=== PATIENT | male | born 1980 | race Caucasian/White ===

== ENCOUNTER 2018-01-29 20:30 | Emergency (ER) | payer OTHER ==
[~2018-01-29 20:30] MED LIST: LIDOCAINE HCL/PF 2% 100 MG/5 ML VIAL IJ ONE
--- NOTE | 2018-01-29 20:39 | ED Physician Documentation ---
General Adult - HISTORIAN Historian: patient - HPI Stated Complaint: finger laceration Chief Complaint: General Adult Onset: minutes Timing: still present Severity: moderate Further Comments: yes (Pt is a 37 yo male with a laceration to the tip of his L middle finger. Pt was scraping adhesive off the interior window of a car where the mirror attaches with his pocket knife and slipped and cut his finger. Tetanus is utd.) - ROS CONST: no problems EYES/ENT: none CVS/RESP: none GI/: none MS/SKIN/LYMPH: other (finger laceration) - PAST HX Past History: other (anxiety) Allergies/Adverse Reactions: Allergies Allergy/AdvReac Type Severity Reaction Status Date / Time Penicillins Allergy Intermediate Rash Verified 01/29/18 20:55 Home Medications: Ambulatory Orders Medication Instructions Recorded Escitalopram Oxalate [Lexapro] 10 mg PO DAILY 07/01/14 LORazepam [Ativan] 0.5 mg PO PRN PRN 01/29/18 - SOCIAL HX Smoking History: non-smoker - FAMILY HX Family History: No - VITAL SIGNS Vital Signs: Vital Signs Temp Pulse Resp BP Pulse Ox 114/67 07/01/14 22:59 - REVIEWED ASSESSMENTS Nursing Assessment Reviewed: Yes Vitals Reviewed: Yes Procedures Wound Location: upper extremity (ventral L middle finger tip) Wound Length: 1 cm Wound's Depth, Shape: superficial, linear Wound Explored: clean Irrigated w/ Saline (ccs): 20 Betadine Prep?: No (Bhupindericlekolby) Anesthesia: 2% Lidocaine Wound Debrided: minimal Wound Repaired With: sutures Suture Size/Type: 4:0, nylon Number of Sutures: 3 Layer Closure?: No Progress - Progress Progress: Apply topical antibiotic, such as Neosporin, Bacitracin, or Triple Antibiotic to sutured area twice daily for 5 days. Follow up with primary provider in 7 days for suture removal. Pt given rx for Keflex 500 mg po tid, which he will fill only if he sees signs of infection. Pt has had keflex in the past. General Adult Physical Exam - PHYSICAL EXAM GENERAL APPEARANCE: mild distress NECK: normal inspection, supple RESPIRATORY: no resp distress, chest non-tender, breath sounds normal CVS: reg rate & rhythm, heart sounds normal BACK: normal inspection SKIN: other (laceration to ventral L middle finger tip, 1 cm.) EXTREMITIES: normal range of motion, other (laceration to ventral L middle finger tip, 1 cm.) NEURO: oriented X3, motor nml, sensation nml Discharge Clincal Impression: finger laceration Referrals: Ara Avendano MD [Primary Care Provider] - Condition: Good Disposition: 01 HOME, SELF-CARE Decision to Admit: NO Decision Time: 21:41
[2018-01-29 21:02] VITALS: BP 118/74
[2018-01-29] MEDS ORDERED: NEOMYCIN/BACITRACIN/POLYMYXINB 1 EACH OINT.PACK TP ONE (21:30)
[2018-01-30] MEDS ORDERED: Lidocaine 2% 20ml Vial ONE (04:14)
== END 2018-01-29 21:55 | disposition home or self-care (01) ==
LOC: ED 20:30
DX: S61.213A Laceration without foreign body of left middle finger without damage to nail, initial encounter (principal); W26.8XXA Contact with other sharp object(s), not elsewhere classified, initial encounter; Y92.9 Unspecified place or not applicable; Y93.H3 Activity, building and construction; Y99.9 Unspecified external cause status
CPT/HCPCS: 12001; J2001